=== PATIENT | female | born 1990 | race Caucasian/White ===

== ENCOUNTER 2018-10-24 06:04 | Emergency (ER) | payer OTHER ==
[~2018-10-24] VITALS: Ht 152.4 cm; Wt 54.6 kg
[~2018-10-24 06:04] MED LIST: FAMO-96 PO; HYDR-4011 PO
[2018-10-24 06:21] VITALS: BP 110/60; PULSE 86; RESP 18; Ht 152.4 cm; Wt 54.6 kg
[2018-10-24] MEDS ORDERED: FAMOTIDINE 20 MG INJ IV STA (07:04)
[2018-10-24] MEDS ORDERED: SOD CHLORIDE 0.9% 1,000 ML IV STA (07:04)
[2018-10-24] MEDS ORDERED: BELLADONNA/PHENOBARBITAL TAB PO STA (07:04)
[2018-10-24] MEDS ORDERED: ONDANSETRON 4 MG INJ IV STA (07:04)
[2018-10-24] MEDS ORDERED: LIDOCAINE/MYLANTA 40 ML BTL PO STA (07:04)
--- NOTE | 2018-10-24 07:10 | ERD ---
ER Documentation Chief Complaint Chief Complaint epigastric pain w/diarrhea just now HPI 28-year-old female presents with history of epigastric pain with associated diarrhea just now. In addition she states that she has been nauseous and has no appetite. Denies any treatments. States that she was here once before last month for this problem and they did not gallbladder ultrasound did not find anything. She denies vomiting, bloody diarrhea, fevers, vaginal discharge, dysuria. Denies past medical history. Denies allergies. Denies medications. Denies surgeries. Denies alcohol, tobacco, drug use. Up to date on vaccines. ROS All systems reviewed and are negative except as per history of present illness. Medications Home Meds Active Scripts Ondansetron (Ondansetron Odt) 8 Mg Tab.rapdis, 8 MG PO Q6H PRN for NAUSEA AND/OR VOMITING, #10 TAB Prov:JAMEL SANDS 10/24/18 Famotidine* (Pepcid*) 20 Mg Tablet, 20 MG PO BID for gastritis for 7 Days, TAB Prov:JAMEL SANDS 10/24/18 Acetaminophen* (Tylophen*) 500 Mg Capsule, 2 CAP PO Q8H PRN for PAIN AND OR ELEVATED TEMP, #20 CAP Prov:JAMEL SANDS 10/24/18 Famotidine* (Pepcid*) 20 Mg Tablet, 20 MG PO BID for 4 Days, TAB Prov:PHIL ARANDA PA-C 09/05/18 Hydrocodone/Acetaminophen (Grandy 5-325 Tablet) 1 Each Tablet, 1 TAB PO Q6H PRN for PAIN, #7 TAB Prov:PHIL ARANDA PA-C 09/05/18 Allergies Allergies: Coded Allergies: No Known Allergy (Unverified , 09/05/18) PMhx/Soc Medical and Surgical Hx: pt denies Medical Hx, pt denies Surgical Hx Hx Alcohol Use: No Hx Substance Use: No Hx Tobacco Use: No Smoking Status: Never smoker FmHx Family History: No diabetes, No coronary disease, No other Physical Exam Vitals Vital Signs Date Temp Pulse Resp B/P (MAP) Pulse Ox O2 O2 Flow FiO2 Time Delivery Rate 10/24/18 98.0 86 18 110/60 99 06:21 (77) Physical Exam Const: No acute distress Head: Atraumatic Eyes: Normal Conjunctiva ENT: Normal External Ears, Nose and Mouth. Neck: Full range of motion. No meningismus. Resp: Clear to auscultation bilaterally Cardio: Regular rate and rhythm, no murmurs Abd: Positive McBurney's tenderness. Positive Live sign. Otherwise nontender. Jumping up and down elicits pain. Skin: No petechiae or rashes Back: No midline or flank tenderness Ext: No cyanosis, or edema Neur: Awake and alert Psych: Normal Mood and Affect Result Diagram: 10/24/1818 10/24/1818 Results 24 hrs Laboratory Tests Test 10/24/18 07:16 10/24/18 07:18 10/24/18 07:19 POC Beta HCG, Qualitative NEGATIVE White Blood Count 11.1 10^3/ul Red Blood Count 4.44 10^6/ul Hemoglobin 13.3 g/dl Hematocrit 40.5 % Mean Corpuscular Volume 91.2 fl Mean Corpuscular Hemoglobin 30.0 pg Mean Corpuscular 32.8 g/dl Hemoglobin Concent Red Cell Distribution Width 11.9 % Platelet Count 305 10^3/UL Mean Platelet Volume 10.0 fl Immature Granulocytes % 0.600 % Neutrophils % 74.4 % Lymphocytes % 16.4 % Monocytes % 5.8 % Eosinophils % 2.4 % Basophils % 0.4 % Nucleated Red Blood Cells % 0.0 /100WBC Immature Granulocytes # 0.070 10^3/ul Neutrophils # 8.2 10^3/ul Lymphocytes # 1.8 10^3/ul Monocytes # 0.6 10^3/ul Eosinophils # 0.3 10^3/ul Basophils # 0.0 10^3/ul Nucleated Red Blood Cells # 0.0 10^3/ul Sodium Level 141 mmol/L Potassium Level 4.0 mmol/L Chloride Level 107 mmol/L Carbon Dioxide Level 24 mmol/L Anion Gap 10 Blood Urea Nitrogen 14 mg/dl Creatinine 0.59 mg/dl Est Glomerular Filtrat > 60 mL/min Rate mL/min Glucose Level 76 mg/dl Calcium Level 9.5 mg/dl Total Bilirubin 0.5 mg/dl Direct Bilirubin 0.00 mg/dl Indirect Bilirubin 0.5 mg/dl Aspartate Amino 28 IU/L Transf (AST/SGOT) Alanine 16 IU/L Aminotransferase (ALT/SGPT) Alkaline Phosphatase 81 IU/L Total Protein 8.3 g/dl Albumin 4.6 g/dl Globulin 3.70 g/dl Albumin/Globulin Ratio 1.24 Lipase 139 U/L Urine Color YELLOW Urine Clarity SLIGHTLY CLOUDY Urine pH 5.0 Urine Specific [place] 1.025 Urine Ketones TRACE mg/dL Urine Nitrite NEGATIVE mg/dL Urine Bilirubin NEGATIVE mg/dL Urine Urobilinogen NEGATIVE mg/dL Urine Leukocyte Esterase 3+ Jhoana/ul Urine Microscopic RBC 16 /HPF Urine Microscopic WBC 14 /HPF Urine Squamous Epithelial Cells FEW /HPF Urine Bacteria FEW /HPF Urine Mucus FEW /HPF Urine Hemoglobin 2+ mg/dL Urine Glucose NEGATIVE mg/dL Urine Total Protein NEGATIVE mg/dl Current Medications Medications Dose Sig/Niru Start Time Status Last (Trade) Ordered Route PRN Stop Time Admin Dose Reason Admin Sodium 1,000 ml @ Q1H STAT 10/24/18 DC 10/24/18 Chloride 1,000 mls/hr IV 07:04 07:21 10/24/18 08:03 Ondansetron 4 mg ONCE STAT 10/24/18 DC 10/24/18 HCl (Zofran IV 07:04 07:21 Inj) 10/24/18 07:07 Famotidine 20 mg ONCE STAT 10/24/18 DC 10/24/18 (Pepcid Iv) IV 07:04 07:21 10/24/18 07:07 40 ml ONCE STAT 10/24/18 DC 10/24/18 Miscellaneous PO 07:04 07:21 Medication 10/24/18 07:07 (Gi Cocktail (2)) Belladonna/ 2 tab ONCE STAT 10/24/18 DC 10/24/18 Phenobarbital PO 07:04 07:21 () 10/24/18 07:07 IV Flush 10 ml STK-MED 10/24/18 DC (NS 10 ml) ONCE .ROUTE 08:06 10/24/18 08:07 Sodium 100 ml @ ud STK-MED 10/24/18 DC Chloride ONCE .ROUTE 08:06 10/24/18 08:07 Iohexol 150 ml STK-MED 10/24/18 DC (Omnipaque ONCE .ROUTE 08:06 300mg/ ml) 10/24/18 08:07 Procedures/MDM DIAGNOSTIC IMAGING REPORT Patient: NASIR MAYFIELD : 1990 Age: 28 Sex: F [id number] DOS: 10/24/18 0704 Ordering MD: JAMEL SANDS Location: [facility] Room/Bed: PROCEDURE: CT abdomen and pelvis with contrast. CLINICAL INDICATION: Epigastric pain. Nausea. TECHNIQUE: CT scan of the abdomen and pelvis without oral contrast was performed and is reconstructed at 2.5 mm contiguous axial intervals from the dome of the diaphragm to the inferior pubic rami.. The patient was scanned with intravenous contrast. Sagittal and coronal reformatted images were obtained from the axial source images. The calculated radiation dose measures 273 mGy centimeters. The CTDI measures 5.5 mGy. Individualized dose optimization technique was used for the performance of this exam. This included 1. Automated exposure control. 2. Adjustment of the mA and / or kV according to the patient's size. 3. Use of iterative reconstructed technique. COMPARISON: Abdominal ultrasound earlier same date FINDINGS: The lung bases are clear of any infiltrate . There is a 3 mm pleural-based benign appearing micro nodule on the dorsal aspect of the right lower lobe.. No effusion is seen. The liver is of normal size, contour and attenuation with no mass or ductal dilatation. No gallstones are visualized. No splenic, adrenal or pancreatic abnormalities present. Kidneys enhance symmetrically and are of normal size and contour. No hydronephrosis, calculus or masses seen. Ureters are of normal course and caliber with no stone. No bladder mass or stone is present. There is an IUD within the endometrial canal. There is no aneurysm. No adenopathy is present. No bowel mass or obstruction is present. The appendix is normal. No phlegmon or pneumoperitoneum is visualized. There is trace pelvic ascites. The osseous structures are intact. IMPRESSION: No evidence of urolithiasis, obstructive uropathy, diverticulitis or appendicitis. No bowel mass or obstruction. Normal CT abdomen pelvis. .Celio Kinney MD, Date Time Electronically viewed and signed by .Celio Kinney MD, MD on 10/24/2018 08:5 9 .A/ DIAGNOSTIC IMAGING REPORT Patient: NASRI MAYFIELD : 1990 Age: 28 Sex: F MR #: [id number] DOS: 10/24/18 0704 Ordering MD: JAMEL SANDS Location: [facility] Room/Bed: PROCEDURE: US gallbladder . CLINICAL INDICATION: Epigastric pain TECHNIQUE: Multiple real-time images were acquired of the patient's abdomen utilizing a high resolution transducer. COMPARISON: US ABDOMEN 09/05/2018 FINDINGS: There is no evidence of cholelithiasis. There is no gallbladder wall thickening or pericholecystic fluid. The CBD measures 2 mm. No sonographic Live's sign was elicited. IMPRESSION: Unremarkable gallbladder ultrasound. RPTAT: HAP Admit-r Oscar, Physician Date Time Electronically viewed and signed by Admit-r Oscar, Physician on 10/24/2018 07:53 AP/ CC: JAMEL SANDS [id number] CC: JAMEL SANDS MDM: 28-year-old female presents with history of epigastric pain with associated diarrhea just now. In addition she states that she has been nauseous and has no appetite. Denies any treatments. States that she was here once before for this problem and they did not gallbladder ultrasound did not find anything. She denies vomiting, bloody diarrhea, fevers. Denies past medical history. Denies allergies. Denies medications. Denies surgeries. Denies alcohol, tobacco, drug use. Up to date on vaccines. UA is positive for UTI so she will be treated with course of Keflex. CT abdomen pelvis with contrast and ultrasound were ordered and all results within normal limits. Labs are also within normal limits. I will suspicion for appendicitis, cholecystitis, cholelithiasis, invasive diarrhea DKA, adrenal crisis, AAA, mesenteric ischemia, pyelonephritis, cholecystitis, aortic dissection, ectopic, ND, pneumonia, acute pancreatitis, PID, or other emergent causes based on patient history and exam. Most likely diagnosis is viral gastritis. Based on these findings I do not feel that additional labs, imaging. or antibiotics are necessary. Patient was given IV fluids, IV Pepcid, and GI cocktail in the ER and patient's symptoms have resolved. Patient discharged with Rx for Tylenol, Pepcid, and Zofran. Patient was discharged with strict ER precautions. Patient was recommended to follow-up with PMD. All questions answered at discharge. Departure Diagnosis: Primary Impression: Epigastric pain Condition: Stable JAMEL SANDS Oct 24, 2018 07:10
[2018-10-24] MEDS ORDERED: ACET500C5 PO (07:36)
[2018-10-24] MEDS ORDERED: ONDA8TAB14 PO (07:36)
[2018-10-24] MEDS ORDERED: FAMO-96 PO (07:36)
[2018-10-24] MEDS ORDERED: IOHEXOL 300MG/ML 150 ML BTL ONE (08:06)
[2018-10-24] MEDS ORDERED: SOD CHLORIDE 0.9% 100 ML ONE (08:06)
[2018-10-24] MEDS ORDERED: CEPH-443 PO (09:36)
== END 2018-10-24 09:48 | disposition home or self-care (01) ==
LOC: FTE 06:04
DX: R10.13 Epigastric pain (principal)
CPT/HCPCS: 36415; 74177; 76705; 80053; 81001; 81025; 83690; 85025; 96361; 96374; 96375; J2405; J7030; Q9967; Z7502; Z7610